=== PATIENT | male | born 1990 | race Caucasian/White ===

== ENCOUNTER 2017-12-21 02:04 | Emergency (ER) | payer BC, MEDICAID ==
[~2017-12-21] VITALS: Ht 180.3 cm; Wt 90.7 kg
[2017-12-21 04:10] VITALS: BP 135/82
[2017-12-21 04:35] LABS: Urine Bacteria NONE SEEN /hpf (None Seen); Urine Blood Negative /uL (Negative); Urine Specific Gravity 1.003 (1.001-1.035); Urine WBC <1 /hpf (0 - 3)
== END 2017-12-21 06:05 | disposition home or self-care (01) ==
LOC: ER 02:07
DX: N50.3 Cyst of epididymis (principal); J45.909 Unspecified asthma, uncomplicated; F17.210 Nicotine dependence, cigarettes, uncomplicated
CPT/HCPCS: 76870; 81001